=== PATIENT | male | born 2000 | race Caucasian/White ===

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

== ENCOUNTER 2022-07-23 17:06 | Emergency (ER) | payer BC, SELFPAY ==
[2022-07-23 17:15] VITALS: BP 117/77; PULSE 85; RESP 16; TEMP 37.1; O2SAT 97
--- NOTE | 2022-07-23 17:45 | ED.URI ---
HPI - URI/Sore Throat General Chief Complaint: Upper Respiratory Infection Stated Complaint: Vomiting,Heading,Sore Throat Source: patient and family Mode of arrival: ambulatory History of Present Illness HPI Narrative: This is a 22-year-old male who presented to our urgent care with complaints of a sore throat, nausea vomiting, fever, chills and fatigue. According to patient's symptoms started a couple days ago. He did not do anything to relieve the symptoms. The patient denies SOB, CP, palpitation, extremity numbness, lightheadedness, dizziness, constipation, diarrhea. Related Data Allergies Allergy/AdvReac Type Severity Reaction Status Date / Time No Known Allergies Allergy Verified 07/23/22 17:16 Review of Systems Review of Systems: A 14 organ system Review of Systems was performed and pertinent positives included in the HPI, otherwise remaining ROS is negative. [facility] Past Medical History Medical History Asthma exercise induced Hernia Surgical History Surgical History H/O right inguinal hernia repair Family History Family History Father Alive and well Mother Alive and well Grandparent Diabetes mellitus Social History Social History Smoking status: Never smoker Tobacco type: cigarettes Second hand tobacco smoke exposure: No Alcohol intake: never Substance use: never Substance use type: does not use Gender identity (if verbalized by the patient): Male Exam Narrative: GENERAL: This is a well-nourished, well-developed patient, in no apparent distress. HEAD: normocephalic, atraumatic. EYES: PERRL. Sclera clear/white. Vision is grossly intact. EARS: External ears normal, auditory canals clear and without drainage, TMs normal without perforation. Hearing grossly intact. NOSE: External nose normal with no obvious nasal discharge, nares without redness, no rhinorrhea. THROAT: Mucous membranes moist, posterior pharynx erythema NECK: Neck supple, non-tender without lymphadenopathy, masses or thyromegaly. CARDIOVASCULAR: Regular rate and rhythm without murmurs, gallops, or rubs. RESPIRATORY: Clear to auscultation. Breath sounds equal bilaterally. No wheezes, rales, or rhonchi. GASTROINTESTINAL: Abdomen soft, non-tender, nondistended. Bowel sounds are active. No hepato-splenomegaly, or palpable masses. No guarding. SKIN: warm, intact with no suspicious lesions or rash, good texture and turgor. NEURO: awake, alert, and oriented to person, place and time. There were no obvious focal neurologic abnormalities. EXTREMITIES: Normal range of motion. No edema. No calf tenderness. Course Course Emergency Course: Patient tested positive for influenza A he will be discharged with Tamiflu and Zofran for nausea vomiting. Level of Care: Express Care Visit Vital Signs Vital signs: Vital Signs Temperature 98.7 F 07/23/22 17:15 Pulse Rate 85 07/23/22 17:15 Respiratory Rate 16 07/23/22 17:15 Blood Pressure 117/77 07/23/22 17:15 Pulse Oximetry 97 07/23/22 17:15 Oxygen Delivery Room Air 07/23/22 17:15 Temperature 98.7 F 07/23/22 17:15 Pulse Rate 85 07/23/22 17:15 Respiratory Rate 16 07/23/22 17:15 Blood Pressure 117/77 07/23/22 17:15 Pulse Oximetry 97 07/23/22 17:15 Oxygen Delivery Room Air 07/23/22 17:15 MDM - URI/Sore Throat Differential Diagnosis Differential diagnosis: Likely upper respiratory infection, viral infection, influenza and pharyngitis Discharge Plan Discharge Clinical Impression: Influenza Patient Disposition: Home, Self-Care Condition: Stable Instructions: Antibiotic Form Additional Instructions: Follow-up with your primary care physician present was not approved Take prescribed medication as i
== END 2022-07-23 17:48 | disposition home or self-care (01) ==
PROVIDERS: Emergency Provider Nurse Practitioner
DX: J10.1 Influenza due to other identified influenza virus with other respiratory manifestations (principal); J45.990 Exercise induced bronchospasm
CPT/HCPCS: 87081; 87426; 87804; 87880; 99213; C9803; G0463

== ENCOUNTER 2022-10-08 18:21 | Emergency (ER) | payer BC, SELFPAY ==
--- NOTE | ~2022-10-08 | XR_ITS ---
EXAM: XR lumbar spine min 4V DATE: 10/08/2022 18:54 HISTORY: low back pain, no known injury . COMPARISON: None available. FINDINGS: 5 nonrib-bearing lumbar-type vertebral bodies. Pedicles intact. Normal vertebral body alig nment. Vertebral body heights preserved. Disc spaces maintained. Normal facets and posterior elements . No fracture or dislocation. IMPRESSION: Normal lumbar spine radiograph findings. Reviewed, dictated and finalized at location K. [facility] [facility]
[2022-10-08 18:29] VITALS: BP 117/74; PULSE 84; RESP 18; TEMP 36.5; O2SAT 100
--- NOTE | 2022-10-08 18:36 | ED.BACK ---
HPI - Back Pain/Injury General Chief Complaint: Back Pain/Injury Stated Complaint: Back Pain Time Seen by Provider: 10/08/22 18:36 Source: patient Mode of arrival: ambulatory Limitations: no limitations History of Present Illness HPI Narrative: 22-year-old male presents with complaint of mid back pain for the past several days. Denies injury. 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 Reports that he is lifting and sitting down objects but nothing is to heavy. Ambulatory with steady gait. No loss of bowel or bladder. Denies urinary symptoms. No history of similar back pain. Has not taking any gwpy-fji-mjyupiy medications to treat his pain. Reports that sometimes back feels like spasming . All systems reviewed and negative except as noted above. Related Data Allergies Allergy/AdvReac Type Severity Reaction Status Date / Time No Known Allergies Allergy Verified 10/08/22 18:29 Review of Systems Review of Systems: CONSTITUTIONAL: Denies fever, chills, or sweats. EYES: Denies visual changes, redness, or discharge. ENT: Denies rhinorrhea, congestion, sore throat, or otalgia. CARDIOVASCULAR: Denies chest pain, palpitations, or edema. RESPIRATORY: Denies cough or dyspnea. GASTROINTESTINAL: Denies abdominal pain, nausea, vomiting, or diarrhea. GENITOURINARY: Denies dysuria or hematuria. SKIN: Denies rash or itching. MUSCULOSKELETAL: Reports back pain. Denies joint pain, or myalgia. NEUROLOGIC: Denies headache, numbness, or weakness. PSYCHIATRIC: Denies anxiety or depression. All other systems reviewed are negative, except as documented in HPI. [facility] Past Medical History Medical History Asthma exercise induced Hernia Surgical History Surgical History H/O right inguinal hernia repair Family History Family History Father Alive and well Mother Alive and well Grandparent Diabetes mellitus Social History Social History Smoking status: Never smoker Tobacco type: cigarettes Second hand tobacco smoke exposure: No Alcohol intake: never Substance use: never Substance use type: does not use Gender identity (if verbalized by the patient): Male Comments At time of signature, agree with nursing past medical, surgical, social and family history. There is no relevant family history pertinent to the presenting complaint. Exam Narrative: GENERAL: This is a well-nourished, well-developed patient, in no apparent distress. HEAD: normocephalic, atraumatic. EYES: PERRL. Sclera clear/white. Vision is grossly intact. EARS: External ears normal NOSE: External nose normal NECK: Neck supple, non-tender without lymphadenopathy, masses or thyromegaly. CARDIOVASCULAR: Regular rate and rhythm without murmurs, gallops, or rubs. RESPIRATORY: Clear to auscultation. Breath sounds equal bilaterally. No wheezes, rales, or rhonchi. SKIN: warm, Dry, intact with no suspicious lesions or rash, good texture and turgor. NEURO: awake, alert, and oriented to person, place and time. There were no obvious focal neurologic abnormalities. EXTREMITIES: No joint tenderness, effusion, or edema noted. No calf tenderness. Negative Homans sign bilaterally. BACK: tender L1 -L2 without deformity. mid back muscle tenderness. Course Course Level of Care: Express Care Visit Vital Signs Vital signs: Vital Signs Temperature 36.5 C 10/08/22 18:29 Pulse Rate 84 10/08/22 18:29 Respiratory Rate 18 10/08/22 18:29 Blood Pressure 117/74 10/08/22 18:29 Pulse Oximetry 100 10/08/22 18:29 Oxygen Delivery Room Air 10/08/22 18:29 Temperature 36.5 C 10/08/22 18:29 Pulse Rate 84 10/08/22 18:29 Respiratory Rate 18 10/08/22 18:29 Blood Pressure 117/74 10/08/22 18:29
== END 2022-10-08 19:32 | disposition home or self-care (01) ==
PROVIDERS: Emergency Provider Nurse Practitioner Family
DX: S39.012A Strain of muscle, fascia and tendon of lower back, initial encounter (principal); X58.XXXA Exposure to other specified factors, initial encounter; J45.990 Exercise induced bronchospasm
CPT/HCPCS: 72110; 99213; G0463

== ENCOUNTER 2023-05-30 13:30 | Emergency (ER) | payer BC, SELFPAY ==
[2023-05-30 14:54] VITALS: BP 138/87; PULSE 102; RESP 18; TEMP 37.1; O2SAT 100
--- NOTE | 2023-05-30 15:36 | ED.URI ---
HPI - URI/Sore Throat General Chief Complaint: Upper Respiratory Infection Stated Complaint: migraine,loss of taste Time Seen by Provider: 05/30/23 15:26 Source: patient and RN notes reviewed Mode of arrival: ambulatory Limitations: no limitations History of Present Illness HPI Narrative: Patient presents today complaining of chills, sweats, headache, fever up to 104.4, loss of taste, 2 episodes of vomiting. Symptoms began last night. Denies cough, sore throat, congestion, rhinorrhea. He has tried no tzcu-puq-[id number] treatment prior to arrival. He has been able to keep down food and fluids since his vomiting episodes. Denies known sick contacts. He has not been vaccinated against COVID-19. Related Data Allergies Allergy/AdvReac Type Severity Reaction Status Date / Time No Known Allergies Allergy Verified 10/08/22 18:29 Review of Systems Review of Systems: CONSTITUTIONAL: Denies body aches. + chills, sweats, fever EYES: Denies visual changes, redness, or discharge. ENT: Denies rhinorrhea, congestion, sore throat, or otalgia. CARDIOVASCULAR: Denies chest pain, palpitations, or edema. RESPIRATORY: Denies cough or dyspnea. GASTROINTESTINAL: Denies abdominal pain, nausea, or diarrhea.+ vomiting GENITOURINARY: Denies dysuria or hematuria. SKIN: Denies rash, itching, or wounds. MUSCULOSKELETAL: Denies back pain, joint pain, or myalgia. NEUROLOGIC: Denies numbness, tingling, or weakness.+ headache PSYCH: Denies depression or anxiety. [facility] Past Medical History Medical History Asthma exercise induced Hernia Surgical History Surgical History H/O right inguinal hernia repair Family History Family History Father Alive and well Mother Alive and well Grandparent Diabetes mellitus Social History Social History Smoking status: Never smoker Tobacco type: cigarettes Second hand tobacco smoke exposure: No Alcohol intake: never Substance use: never Substance use type: does not use Living arrangements: with family Occupation/Education: student Gender identity (if verbalized by the patient): Male Comments At time of signature, I have reviewed and agree with nursing past medical, surgical, social and family history unless otherwise noted. Please see nursing chart for further information. There is no relevant family history pertinent to the presenting complaint Exam Narrative: GENERAL: Mildly ill-appearing, well-nourished, and in no acute distress. HEAD: Normocephalic, atraumatic. EYES: EOMI. No redness or drainage. Conjunctivae normal. ENT: Mucous membranes pink and moist. Nares clear. No rhinorrhea. TMs normal bilaterally. Throat normal. Uvula midline. NECK: Normal AROM. Supple. No lymphadenopathy. CHEST: No respiratory distress. Clear to auscultation. HEART: Regular rate and rhythm. No murmur appreciated. Normal peripheral pulses. EXTREMITIES: Normal range of motion. No edema. SKIN: Warm, dry, no rash. Capillary refill normal. Normal skin turgor. NEURO: No focal deficits. Alert and oriented x3. Gait steady. PSYCH: Normal affect. No signs of depression or anxiety. Course Course Level of Care: Express Care Visit Vital Signs Vital signs: Vital Signs Temperature 98.8 F 05/30/23 14:54 Pulse Rate 102 H 05/30/23 14:54 Respiratory Rate 18 05/30/23 14:54 Blood Pressure 138/87 05/30/23 14:54 Pulse Oximetry 100 05/30/23 14:54 Oxygen Delivery Room Air 05/30/23 14:54 Temperature 98.8 F 05/30/23 14:54 Pulse Rate 102 H 05/30/23 14:54 Respiratory Rate 18 05/30/23 14:54 Blood Pressure 138/87 05/30/23 14:54 Pulse Oximetry 100 05/30/23 14:54 Oxygen Delivery Room Air 05/30/23 14:54 Reviewe
== END 2023-05-30 16:02 | disposition home or self-care (01) ==
PROVIDERS: Emergency Provider Nurse Practitioner
DX: B34.9 Viral infection, unspecified (principal); Z20.822 Contact with and (suspected) exposure to COVID-19; J45.990 Exercise induced bronchospasm
CPT/HCPCS: 87426; 87804; 99213; C9803; G0463

== ENCOUNTER 2023-12-08 10:34 | Emergency (ER) | payer BC, SELFPAY ==
[2023-12-08 10:55] VITALS: BP 125/82; PULSE 92; RESP 18; TEMP 36.4; O2SAT 100
--- NOTE | 2023-12-08 11:06 | ED.URI ---
HPI - URI/Sore Throat General Chief Complaint: Upper Respiratory Infection Stated Complaint: cough Time Seen by Provider: 12/08/23 11:12 Source: patient and RN notes reviewed Mode of arrival: ambulatory Limitations: no limitations History of Present Illness HPI Narrative: 23-year-old male presents with concern for one-month history of cough, chest congestion, nasal congestion. Reports general malaise, fatigue. He has not taken any vrcn-iym-ghphmzo medications for his symptoms. MD elicited complaint: cough Related Data Allergies Allergy/AdvReac Type Severity Reaction Status Date / Time No Known Allergies Allergy Verified 12/08/23 10:49 Review of Systems Review of Systems: CONSTITUTIONAL: Reports fatigue, malaise. Denies chills, sweats, or fever. EYES: Denies visual changes, redness, or discharge. ENT: Reports rhinorrhea, congestion, sinus pain CARDIOVASCULAR: Denies chest pain, palpitations, or edema. RESPIRATORY: Reports cough and chest congestion. Denies dyspnea. GASTROINTESTINAL: Denies abdominal pain, nausea, vomiting, diarrhea SKIN: Denies rash or itching. MUSCULOSKELETAL: Denies myalgia. NEUROLOGIC: Denies headache. All systems reviewed & are unremarkable except as noted in HPI and below PMFSH Past Medical History Medical History Asthma exercise induced Hernia Surgical History Surgical History H/O right inguinal hernia repair Family History Family History Father Alive and well Mother Alive and well Grandparent Diabetes mellitus Social History Social History Smoking status: Never smoker Tobacco type: cigarettes Second hand tobacco smoke exposure: No Alcohol intake: never Substance use: never Substance use type: does not use Living arrangements: with family Occupation/Education: student Gender identity (if verbalized by the patient): Male Comments At time of signature, agree with nursing past medical, surgical, social and family history. There is no relevant family history pertinent to the presenting complaint Exam Narrative: GENERAL: Nontoxic-appearing, well-nourished, and in no acute distress. HEAD: Normocephalic EYES: PERRLA, conjunctivae clear ENT: Nares clear, turbinates edematous and erythematous, clear discharge. Mucous membranes moist. TM pearly viera with dull light reflex bilaterally; no tragal tenderness. Oropharynx not erythematous without lesions. Tonsils not enlarged and without exudate, no drooling, no hoarseness, no trismus, uvula midline. NECK: Supple. No lymphadenopathy CHEST: Clear to auscultation, breath sounds equal. No wheezing, rhonchi, rales, or stridor. No respiratory distress, speaks in full sentences. HEART: Regular rate and rhythm. No murmur heard. SKIN: Warm, dry, no rash. NEURO: Alert and oriented x3. PSYCH: Normal mood and affect Course Course Emergency Course: Patient is aware of diagnosis, understands and agrees to treatment plan. Anticipatory guidance given. Patient agrees to follow-up as directed and is aware of reasons to seek care at the emergency department. Portions of this record may have been created with voice recognition software Level of Care: Express Care Visit Vital Signs Vital signs: Vital Signs Temperature 97.6 F 12/08/23 10:55 Pulse Rate 92 12/08/23 10:55 Respiratory Rate 18 12/08/23 10:55 Blood Pressure 125/82 12/08/23 10:55 Pulse Oximetry 100 12/08/23 10:55 Oxygen Delivery Room Air 12/08/23 10:55 Temperature 97.6 F 12/08/23 10:55 Pulse Rate 92 12/08/23 10:55 Respiratory Rate 18 12/08/23 10:55 Blood Pressure 125/82 12/08/23 10:55 Pulse Oximetry 100 12/08/23 10:55 Oxygen Delivery Room Air 12/08/23 10:55 Reviewed
== END 2023-12-08 11:21 | disposition home or self-care (01) ==
PROVIDERS: Emergency Provider Nurse Practitioner
DX: J40 Bronchitis, not specified as acute or chronic (principal)
CPT/HCPCS: 99213; G0463

== ENCOUNTER 2024-02-01 13:23 | Emergency (ER) | payer BC, SELFPAY ==
--- NOTE | 2024-02-01 13:27 | ED.URI ---
HPI - URI/Sore Throat General Chief Complaint: Upper Respiratory Infection Stated Complaint: Diarrhea,Vomiting,Cough Time Seen by Provider: 02/01/24 14:00 Source: patient and RN notes reviewed Mode of arrival: ambulatory Limitations: no limitations History of Present Illness HPI Narrative: 24-year-old male presents with concern for 2 day history of diarrhea, 1 episode of vomiting, cough, nasal congestion. He denies fever, body aches, chills, sweats. He has not taken anything [id number] for his symptoms. MD elicited complaint: nasal congestion Related Data Allergies Allergy/AdvReac Type Severity Reaction Status Date / Time No Known Allergies Allergy Verified 02/01/24 13:36 Review of Systems Review of Systems: CONSTITUTIONAL: Denies malaise, chills, sweats, or fever. EYES: Denies visual changes, redness, or discharge. ENT: Reports rhinorrhea, congestion. Denies sinus pain, otalgia and sore throat. CARDIOVASCULAR: Denies chest pain, palpitations, or edema. RESPIRATORY: Reports cough. Denies dyspnea. GASTROINTESTINAL: Denies abdominal pain. Reports nausea, vomiting, diarrhea SKIN: Denies rash or itching. MUSCULOSKELETAL: Denies myalgia. NEUROLOGIC: Denies headache. All systems reviewed & are unremarkable except as noted in HPI and below PMFSH Past Medical History Medical History Asthma exercise induced Hernia Surgical History Surgical History H/O right inguinal hernia repair Family History Family History Father Alive and well Mother Alive and well Grandparent Diabetes mellitus Social History Social History Smoking status: Never smoker Tobacco type: cigarettes Second hand tobacco smoke exposure: No Alcohol intake: never Substance use: never Substance use type: does not use Living arrangements: with family Occupation/Education: student Gender identity (if verbalized by the patient): Male Comments At time of signature, agree with nursing past medical, surgical, social and family history. There is no relevant family history pertinent to the presenting complaint Exam Narrative: GENERAL: Well-appearing, well-nourished, and in no acute distress. HEAD: Normocephalic EYES: PERRLA, conjunctivae clear ENT: Nares clear, turbinates edematous and erythematous, clear discharge. Mucous membranes moist. TM pearly viera with sharp light reflex bilaterally; no tragal tenderness. Oropharynx not erythematous without lesions. Tonsils not enlarged and without exudate, no drooling, no hoarseness, no trismus, uvula midline. NECK: Supple. No lymphadenopathy CHEST: Clear to auscultation, breath sounds equal. No wheezing, rhonchi, rales, or stridor. No respiratory distress, speaks in full sentences. HEART: Regular rate and rhythm. No murmur heard. ABD: Soft, nontender, normal bowel sounds SKIN: Warm, dry, no rash. NEURO: Alert and oriented x3. PSYCH: Normal mood and affect Course Course Emergency Course: Patient is aware of diagnosis, understands and agrees to treatment plan. Anticipatory guidance given. Patient agrees to follow-up as directed and is aware of reasons to seek care at the emergency department. Portions of this record may have been created with voice recognition software Level of Care: Express Care Visit Vital Signs Vital signs: Reviewed. MDM - URI/Sore Throat MDM Narrative Medical decision making narrative: Differential diagnosis considered: Casas virus, strep pharyngitis, allergic rhinitis, upper respiratory tract infection, sinusitis, rhinosinusitis, nasopharyngitis. viral pharyngitis, otitis media, otitis externa, pneumonia, bronchitis, viral cough syndrome, viral syndrome, and influenza. Exam findings show no acute con
[2024-02-01 13:31] VITALS: BP 133/86; PULSE 91; RESP 18; TEMP 36.5; O2SAT 99
== END 2024-02-01 14:03 | disposition home or self-care (01) ==
PROVIDERS: Emergency Provider Nurse Practitioner; PCP Nurse Practitioner
DX: B34.9 Viral infection, unspecified (principal)
CPT/HCPCS: 87426; 87804; 99213; G0463

== ENCOUNTER 2024-02-23 19:31 | Emergency (ER) | payer BC, SELFPAY ==
[2024-02-23 19:40] VITALS: BP 142/96; PULSE 91; RESP 16; TEMP 36.5; O2SAT 100
--- NOTE | 2024-02-23 19:47 | ED.WOUNDLAC ---
HPI - Wound/Laceration General Chief Complaint: Skin/Abscess/Foreign Body Stated Complaint: tetanus shot Time Seen by Provider: 02/23/24 19:45 Source: patient Mode of arrival: ambulatory Limitations: no limitations History of Present Illness HPI narrative: Davin is a 24-year-old male patient presenting to the clinic today with complaints of a puncture wound to the right mid foot. He reports this happened just prior to arrival. States that the flores nail went through his shoe into his foot. Is concerned for tetanus. Last tetanus shot was over 10 years ago. Related Data Home Medications Medication Instructions Recorded Confirmed albuterol sulfate 90 mcg/actuation 2 puff inhalation QID PRN 02/23/24 02/23/24 aerosol inhaler Shortness Of Breath Or Wheezing Allergies Allergy/AdvReac Type Severity Reaction Status Date / Time No Known Allergies Allergy Verified 02/23/24 19:52 Review of Systems Review of Systems: Pertinent positives per HPI. Patient denies any fever, chills, rash, headache, visual changes, dizziness, cough, runny nose, sore throat, shortness of breath, chest pain, palpitations, nausea, vomiting, diarrhea, constipation, abdominal pain, or any urinary issues. PMFSH Past Medical History Medical History Asthma exercise induced Hernia Surgical History Surgical History H/O right inguinal hernia repair Family History Family History Father Alive and well Mother Alive and well Grandparent Diabetes mellitus Social History Social History (Updated 02/23/24 @ 19:57 by Charles Briceño APRN) Smoking status: Never smoker Second hand tobacco smoke exposure: No Alcohol intake: never Substance use: never Substance use type: does not use Living arrangements: with family Occupation/Education: student Gender identity (if verbalized by the patient): Male Comments At the time of my signature, I reviewed and agree with the nursing past medical, surgical, social, and family history. There is no relevant family history pertinent to the patient complaint. Exam Narrative: General: Well-developed, well nourished, in no apparent distress Head: Normocephalic, atraumatic. Cardio: Regular rate and rhythm, s1 and s2 normal, no murmur appreciated. Resp: Clear to auscultation bilaterally, no rhonchi, rales, wheezing or rubs. Integumentary: [place], warm, and dry, puncture wound to the right distal mid midfoot mild swelling and redness noted. Tenderness to palpation over this area without palpable abscess, no obvious retained foreign body Course Course Emergency Course: Portions of this record may have been created with voice recognition software. Level of Care: Express Care Visit Vital Signs Vital signs: Vital Signs Temperature 36.5 C 02/23/24 19:40 Pulse Rate 91 02/23/24 19:40 Respiratory Rate 16 02/23/24 19:40 Blood Pressure 142/96 H 02/23/24 19:40 Pulse Oximetry 100 02/23/24 19:40 Oxygen Delivery Room Air 02/23/24 19:40 Temperature 36.5 C 02/23/24 19:40 Pulse Rate 91 02/23/24 19:40 Respiratory Rate 16 02/23/24 19:40 Blood Pressure 142/96 H 02/23/24 19:40 Pulse Oximetry 100 02/23/24 19:40 Oxygen Delivery Room Air 02/23/24 19:40 Vital signs reviewed MDM - Wound/Laceration MDM Narrative Medical decision making narrative: At the time of visit patient is resting comfortably on the exam table. Patient appears to be nontoxic. Plan: I suspect patient has a puncture wound to the right midfoot. Tdap was given in the clinic today. Wound was cleansed and Band-Aid with triple antibiotic ointment was applied. Supportive measures were discussed with the patient and they voiced understanding discharge instructions and agrees to treatment plan. Re
[2024-02-23] MEDS: TETANUS,DIPHTHERIA,AC PERTUSSIS ADULT (0.5 ML) BOOSTRIX IM (19:59)
--- NOTE | 2024-02-23 20:17 | PC.NURSE ---
Patient became diaphoretic after Tdap administration, but recovered quickly with cool wash rag and fanning air onto him. Patient fully recovered at the time of discharge and states he feels much better. Patient escorted to car with RT. Ame
== END 2024-02-23 20:07 | disposition home or self-care (01) ==
PROVIDERS: Emergency Provider Nurse Practitioner Family; PCP Nurse Practitioner
DX: S91.331A Puncture wound without foreign body, right foot, initial encounter (principal); W45.0XXA Nail entering through skin, initial encounter; Z23 Encounter for immunization; J45.990 Exercise induced bronchospasm
CPT/HCPCS: 90471; 90715; 99212; G0463

== ENCOUNTER 2024-03-09 22:50 | Emergency (ER) | payer BC, SELFPAY ==
--- NOTE | ~2024-03-09 | XR_ITS ---
Portable chest x-ray Comparison: 10/29/2004 Clinical History: Hematemesis Findings: Lungs are clear, without focal consolidation or pleural effusion. Cardiomediastinal silho uette is stable. Bones and soft tissues are unremarkable. Impression: Normal chest. Reviewed, dictated and finalized at [facility]. Impression: Normal chest.
[2024-03-09 23:02] VITALS: BP 127/83; PULSE 96; RESP 17; TEMP 37; O2SAT 100
[2024-03-09 23:21] LABS: Basophils Percent Auto 0.2 % (0.2-1.2); Eosinophils Absolute Auto 0.1 K/mm3 (0-0.3); Eosinophils Percent Auto 0.7 % (0-4.4); Hematocrit 42.8 % (42.0-52.0); Hemoglobin 14.8 g/dL (14.0-18.0); Immature Granulocyte Absolute 0.05 K/mm3 (0.00-0.031); Immature Granulocyte Percent A 0.4 % (0-0.5); Lymphocytes Absolute Auto 1.56 K/mm3 (0.9-3.2); Mean Corpuscular HGB Conc 34.6 g/dl (32-36); Mean Corpuscular Hemoglobin 31.4 pg (26-34); Mean Corpuscular Volume 90.9 fl (80-100); Mean Platelet Volume 10.6 fl (7.4-10.4); Monocytes Absolute Auto 0.8 K/mm3 (0.1-0.6); Monocytes Percent Auto 6.2 % (2.6-8.5); Neutrophils Absolute Auto 9.6 K/mm3 (1.3-6.7); Neutrophils Percent Auto 79.5 % (45.5-73.1); Platelet Count Result 268 k/mm3 (150-375); Red Blood Count 4.71 M/mm3 (4.6-6.20); Red Cell Distribution Width 13.1 % (11.5-14.5)
[2024-03-09 23:30] LABS: Alanine Aminotransferase 15 U/L (6-50); Albumin Level 4.6 g/dL (3.5-5.1); Alkaline Phosphatase 48 U/L (38-126); Anion Gap 10 mmol/L (4-12); Aspartate Amino Transferase 27 U/L (17-59); Bilirubin,Total 0.6 mg/dL (0.2-1.3); Blood Urea Nitrogen 18 mg/dL (9-20); Calcium 9.5 mg/dL (8.4-10.2); Carbon Dioxide 26 mmol/L (22-30); Chloride 100 mmol/L (98-107); Estimated CRCL calculation 80 ml/min; Estimated Glomerular Filt Rate > 60; Glucose 91 mg/dL (65-110); Potassium 4.2 mmol/L (3.4-5.0); Sodium 136 mmol/L (137-145)
[2024-03-09 23:34] LABS: Prothrombin Time 13.1 Seconds (11.1-14.7)
[2024-03-09 23:35] LABS: Partial Thromboplastin Time 27.8 Seconds (22.3-36.8)
[2024-03-09] MEDS: ONDANSETRON INJ 4 MG/2 ML VIAL IV PUSH (23:39)
[2024-03-09 23:41] VITALS: BP 124/88; PULSE 90; RESP 13; O2SAT 100
--- NOTE | 2024-03-09 23:44 | ED.GENADULT ---
HPI - General Adult General Chief complaint: GI Bleed Stated complaint: Vomited brown with bright red blood vomit Time Seen by Provider: 03/09/24 23:38 History of Present Illness HPI narrative: Patient is a 24-year-old male who presents to the emergency department this evening complaining of blood-tinged emesis. Patient states that within the past 3 days he has had 1 episode of emesis per day and noticed that it was blood tinged. He denies any pain at this time including any chest pain, any difficulty swallowing, any fevers or chills at home. Patient admits to daily vaping. He denies any alcohol abuse or illicit drug use. Patient admits to history of acid reflux and states that he does not take any medication for it. No additional symptoms or concerns at this time. Related Data Home Medications Medication Instructions Recorded Confirmed albuterol sulfate 90 mcg/actuation 2 puff inhalation QID PRN 02/23/24 02/23/24 aerosol inhaler Shortness Of Breath Or Wheezing Allergies Allergy/AdvReac Type Severity Reaction Status Date / Time No Known Allergies Allergy Verified 03/09/24 22:51 Review of Systems Review of Systems: All systems are reviewed and are negative unless stated otherwise in the HPI. [facility] Past Medical History Medical History Asthma exercise induced Hernia Surgical History Surgical History H/O right inguinal hernia repair Family History Family History Father Alive and well Mother Alive and well Grandparent Diabetes mellitus Social History Social History Smoking status: Never smoker Second hand tobacco smoke exposure: No Alcohol intake: never Substance use: never Substance use type: does not use Living arrangements: with family Occupation/Education: student Gender identity (if verbalized by the patient): Male Exam Narrative: General: Alert, awake, afebrile, in no acute distress. HEENT: PERRL, no rhinorrhea, no post nasal drip, oropharynx clear. Neck: Trachea midline, no JVD, no lymphadenopathy. Cardiovascular: Regular rate and rhythm, no murmurs, rubs or gallops, no peripheral edema. Respiratory: Clear to auscultation bilaterally, no tachypnea, no wheezing, no rhonchi, no rubs, no respiratory distress. Abdomen: Soft, nontender, nondistended, no rebound, no guarding, no peritoneal signs. Musculoskeletal: No joint swelling or deformity, normal muscle tone. Skin: No rashes or petechia, no signs of infection. Neurological: Alert and oriented to person, place, and time. Follows all commands. No focal deficits, speech is clear and fluent. Course Vital Signs Vital signs: Vital Signs Temperature 98.6 F 03/09/24 23:02 Pulse Rate 96 03/09/24 23:02 Respiratory Rate 17 03/09/24 23:02 Blood Pressure 127/83 03/09/24 23:02 Pulse Oximetry 100 03/09/24 23:02 Temperature 98.6 F 03/09/24 23:02 Pulse Rate 90 03/09/24 23:41 Respiratory Rate 13 03/09/24 23:41 Blood Pressure 124/88 03/09/24 23:41 Pulse Oximetry 100 03/09/24 23:41 Medical Decision Making MDM Narrative Medical decision making narrative: The patient was evaluated by myself in the emergency department. History is obtained from [source] who is an independent historian and physical exam was performed. External medical records were reviewed at this time. IV was established and pertinent tests were ordered. Patient was administered 4 mg of IV Zofran for nausea and 40 mg of IV Protonix for acid reflux. Laboratory results obtained revealing no acute process. Hemoglobin stable at 14.8. Imaging studies obtained included CXR which was independently interpreted by me revealing no acute process, which is pending final radiology interpretation
[2024-03-10] MEDS: PANTOPRAZOLE SODIUM IV 40 MG VIAL IV PUSH (00:25)
== END 2024-03-10 00:30 | disposition home or self-care (01) ==
PROVIDERS: Emergency Provider Emergency Medicine; PCP Nurse Practitioner
DX: K92.0 Hematemesis (principal); J45.990 Exercise induced bronchospasm; F17.290 Nicotine dependence, other tobacco product, uncomplicated
CPT/HCPCS: 36415; 71045; 80053; 85025; 85610; 85730; 86850; 86900; 86901; 96374; 96375; 99284; C9113; J2405